=== PATIENT | female | born 1950 | race Hispanic/Latino ===

== ENCOUNTER → 2018-01-30 10:11 | Outpatient (CLI) | payer MEDICARE, SELFPAY ==
--- NOTE | 2018-01-30 | DI.MG.S_ITS ---
BILATERAL DIGITAL SCREENING MAMMOGRAM 3D/2D WITH CAD: 01/30/2018 CLINICAL: Routine screening. Comparison is made to exams dated: 04/21/2015 mammogram, 04/15/2014 mammogram, and 04/17/2013 mammogram - [place]. The tissue of both breasts is heterogeneously dense. This may lower the sensitivity of mammography. Current study was also evaluated with a Computer Aided Detection (CAD) system. No significant masses, calcifications, or other findings are seen in either breast. There has been no significant interval change. IMPRESSION: NEGATIVE There is no mammographic evidence of malignancy. A 1 year screening mammogram is recommended. This exam was interpreted at Station ID: [id number]. NOTE: For mammograms, a report in lay terms will be sent to the patient. Approximately 15% of breast malignancies will not be visualized mammographically. In the management of a palpable breast mass, a negative mammogram must not discourage biopsy of a clinically suspicious lesion. Electronically Signed By: Cornel dahl/jolene:01/30/2018 12:05:42 letter sent: Normal Exam ACR BI-RADS Category 1: Negative 3341F
== END ==
PROVIDERS: Family Provider Internal Medicine; PCP Internal Medicine; Visit Provider Specialist
DX: Z12.31 Encounter for screening mammogram for malignant neoplasm of breast (principal); M85.852 Other specified disorders of bone density and structure, left thigh; Z78.0 Asymptomatic menopausal state; Z82.62 Family history of osteoporosis
CPT/HCPCS: 77063; 77067; 77080

== ENCOUNTER → 2018-04-25 16:42 | Outpatient (CLI) | payer MEDICARE, SELFPAY ==
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
== END ==
PROVIDERS: PCP Student in an Organized Health Care Education/Training Program; Visit Provider Student in an Organized Health Care Education/Training Program
DX: M54.2 Cervicalgia (principal); M43.12 Spondylolisthesis, cervical region
CPT/HCPCS: 72040

== ENCOUNTER → 2018-05-02 18:02 | Outpatient (CLI) | payer MEDICARE, SELFPAY ==
--- NOTE | 2018-05-02 18:05 | DI.RAD.S_ITS ---
PROCEDURE: XR CERVICAL SPINE 4V OR 5V INDICATIONS: CERVICALGIA TECHNIQUE: 7 views of the cervical spine acquired. COMPARISON: None. FINDINGS: Bones: No fractures or dislocations to the C7 level. There is grade 1 anterolisthesis of C3 on C4 and C4 on C5. Moderate degenerative disc disease is present at C5-C6 and C6-C7. There is bilateral facet arthropathy, most pronounced at C3-C4, C4-C5 and C5-C6. On flexion, there is exacerbation of spontaneity ceases. Soft tissues: No prevertebral soft tissue swelling. IMPRESSION: 1. Degenerative disc and facet disease in cervical spine. 2. Grade 1 anterolisthesis of C3 on C4 and C4 on C5, which is exacerbated with flexion. Dictated by: Jc Bui M.D. on 05/03/2018 at 11:28 Approved by: Jc Bui M.D. on 05/03/2018 at 11:34
== END ==
PROVIDERS: Family Provider Internal Medicine; PCP Student in an Organized Health Care Education/Training Program; Visit Provider Student in an Organized Health Care Education/Training Program
DX: M50.322 Other cervical disc degeneration at C5-C6 level (principal); M43.12 Spondylolisthesis, cervical region
CPT/HCPCS: 72050

== ENCOUNTER → 2019-05-01 07:51 | Outpatient (CLI) | payer MEDICARE, SELFPAY ==
--- NOTE | 2019-05-01 | DI.MG.S_ITS ---
BILATERAL DIGITAL SCREENING MAMMOGRAM 3D/2D WITH CAD: 05/01/2019 CLINICAL: Routine screening. Comparison is made to exams dated: 01/30/2018 mammogram - [facility], 04/21/2015 mammogram, 04/15/2014 mammogram, and 04/17/2013 mammogram - [place]. The tissue of both breasts is heterogeneously dense. This may lower the sensitivity of mammography. Current study was also evaluated with a Computer Aided Detection (CAD) system. No significant masses, calcifications, or other findings are seen in either breast. There has been no significant interval change. IMPRESSION: NEGATIVE There is no mammographic evidence of malignancy. A 1 year screening mammogram is recommended. This exam was interpreted at Station ID: [id number]. NOTE: For mammograms, a report in lay terms will be sent to the patient. Approximately 15% of breast malignancies will not be visualized mammographically. In the management of a palpable breast mass, a negative mammogram must not discourage biopsy of a clinically suspicious lesion. Electronically Signed By: Elie barron/jolene:05/01/2019 19:36:52 letter sent: Normal Exam ACR BI-RADS Category 1: Negative 3341F
--- NOTE | 2019-05-01 | DI.RAD.S_ITS ---
PROCEDURE: FL BARIUM SWALLOW INDICATIONS: CHOKING COMPARISON: None. FINDINGS: Function: There is normal esophageal peristalsis. No elicited gastroesophageal reflux. There is normal transit of a calibrated barium tablet through the esophagus into the stomach. Morphology: Air-contrast images demonstrate normal mucosal morphology. Single contrast views show no esophageal strictures, extrinsic mass effects, or diverticula. Limited images of the stomach demonstrate normal appearance. Suggestion of possible very small sliding hiatal hernia real-time imaging but not able to acquire image documentation. IMPRESSION: Possible very small sliding hiatal hernia noted during real-time imaging but unable to acquire image documentation. Otherwise, negative barium swallow. Dictated by: John Rubin M.D. on 05/01/2019 at 18:31 Approved by: John Rubin M.D. on 05/01/2019 at 18:35
== END ==
PROVIDERS: PCP Student in an Organized Health Care Education/Training Program; Visit Provider Student in an Organized Health Care Education/Training Program
DX: Z12.31 Encounter for screening mammogram for malignant neoplasm of breast (principal); R09.89 Other specified symptoms and signs involving the circulatory and respiratory systems
CPT/HCPCS: 74220; 77063; 77067

== ENCOUNTER 2019-05-15 11:00 | Day surgery (SDC) | payer MEDICARE, SELFPAY ==
[2019-05-15] VITALS (7 sets, daily range): BP systolic 96–111; BP diastolic 61–70; PULSE 52–62; RESP 10–16; TEMP 36.2–36.9; O2SAT 97–100; BMI 22.4
[2019-05-15] MEDS: SODIUM CHLORIDE 0.9% 1,000 ML 42 ML IV (11:19)
--- NOTE | 2019-05-15 12:59 | PM.HP.1 ---
History of Present Illness History of Present Illness Date Patient Seen: 05/15/19 Time Patient Seen: 12:59 Chief complaint: [id number] Narrative: Screening colonoscopy. Last in the distant past Patient History Social History household members: spouse Family & Social History Social History: household members spouse Meds Home Medications and Allergies Home Medications Medication Instructions Recorded Confirmed Type estradiol 1 mg PO QDAY #0 11/30/17 05/15/19 History BIEST (50:50) 5mg/mL Cream 2 mg TOPICAL .COMPLEX #30 day 12/21/18 05/15/19 Rx PROGESTERONE 100mg/mL Cream 40 mg TOPICAL .COMPLEX #30 day 12/21/18 05/15/19 Rx azilsartan med-chlorthalidone 1 tab PO DAILY 05/15/19 05/15/19 History [Edarbyclor] Allergies Allergy/AdvReac Type Severity Reaction Status Date / Time Sulfa (Sulfonamide Allergy Intermediate Hives Verified 05/15/19 11:17 Antibiotics) Exam Vital Signs (past 8 hours): - 05/15/19 11:30 Temperature 98.5 F Pulse Rate 57 L Respiratory Rate 16 Blood Pressure 103/65 Pulse Oximetry 99 Oxygen Delivery Method Room Air Narrative Exam Narrative: Oropharynx free of lesions Chest clear to auscultation percussion Cardiac exam reveals no S3 or murmur Assessment & Plan Assessment & Plan narrative: Need for screening colonoscopy. Risks, benefits, alternatives have been explained. Further recommendations to follow the results of that study.
--- NOTE | 2019-05-15 13:00 | PM.OP.ENDO ---
Operative Date/Time/Diagnoses Date of procedure: 05/15/19 Time of procedure: 13:00 Pre-op diagnosis: See indication and findings Procedure Notes Procedure in detail: After informed consent was obtained the patient was placed in left lateral decubitus position. The video colonoscope was introduced the rectum slowly advanced to cecum. On slow withdrawal mucosa was carefully examined. Scope was removed. Patient tolerated procedure well. Preparation was good. Blood loss none Complications none Sedation Total sedation time total sedation time 24 minutes Versed 5 mg fentanyl 100 mg IV titration Findings Scattered diverticulosis particularly in the left colon. One diverticulum in the sigmoid may have had a bit of inflammation around it. Otherwise negative colonoscopy to cecum Patient should have follow-up colonoscopy in 10 years.
[2019-05-15] MEDS: fentaNYL 250 MCG/5 ML INJ IV (13:12)
[2019-05-15] MEDS: MIDAZOLAM 5 MG/5 ML VIAL IV (13:13)
--- NOTE | 2019-05-15 13:17 | SUR.OPER ---
ABDOMINAL EXTERNAL PRESSURE REQUIRED
== END 2019-05-15 14:26 | disposition home or self-care (01) ==
PROVIDERS: PCP Student in an Organized Health Care Education/Training Program; Visit Provider Internal Medicine Gastroenterology
PROC: 0DJD8ZZ Inspection of Lower Intestinal Tract, Via Natural or Artificial Opening Endoscopic (ICD-10-PCS; CPT 45378; principal; 2019-05-15 12:30)
DX: Z12.11 Encounter for screening for malignant neoplasm of colon (principal); K57.30 Diverticulosis of large intestine without perforation or abscess without bleeding
CPT/HCPCS: G0121; J2250; J3010

== ENCOUNTER → 2019-05-17 13:14 | Outpatient (CLI) | payer MEDICARE, SELFPAY ==
--- NOTE | 2019-05-17 | DI.MRI.S_ITS ---
PROCEDURE: MR LUMBAR SPINE WO CON INDICATIONS: Low back pain TECHNIQUE: Noncontrast sagittal T1 spin echo and T2 fast echo, sagittal STIR, axial T1 and T2 fast spin echo through the lumbar spine. In cases with scoliosis, additional coronal T2 fast spin echo may be performed. COMPARISON: [facility] [place], CR, XR LUMBAR SPINE WITH OLBIQUES PLUS FLEXION EXTENSION, 04/24/2019, 15:34. FINDINGS: Image quality: Excellent. Alignment and Curvature: 5 lumbar type vertebral bodies are present by plain film. There is loss of normal lumbar lordosis. Bone Marrow: Marrow is of normal overall signal. No acute vertebral body compression fractures. There is mild reactive signal within the endplates adjacent to the L2-L3 and L3-L4 intervertebral discs. Spinal Cord: Conus medullaris terminates at the upper L2 level. Visualized cord demonstrates normal signal and size. Paraspinous Soft Tissues: No paravertebral masses. L1-L2: Normal appearance. L2-L3: Mild bilateral facet and ligament flavum hypertrophy. Mild disc desiccation and mild diffuse disc bulge. Mild canal stenosis. No foraminal stenosis. L3-L4: Mild disc height loss and desiccation. Mild diffuse disc bulge. Mild facet and ligamentum flavum hypertrophy. Mild epidural lipomatosis. Mild canal stenosis. Mild bilateral foraminal stenosis. L4-L5: Mild facet and ligamentum flavum hypertrophy. No significant canal, nor foraminal stenosis. L5-S1: Mild disc height loss and desiccation. Mild diffuse disc bulge with small superimposed central protrusion. No significant canal, neuroforaminal stenosis. IMPRESSION: Multilevel degenerative disc and facet disease, causing mild multilevel canal and foraminal stenoses. No neural impingement. Dictated by: Vaishali Spangler M.D. on 05/17/2019 at 15:56 Approved by: Vaishali Spangler M.D. on 05/17/2019 at 15:58
== END ==
PROVIDERS: Family Provider Student in an Organized Health Care Education/Training Program; PCP Student in an Organized Health Care Education/Training Program; Visit Provider Physical Medicine & Rehabilitation Pain Medicine
DX: M54.5 Low back pain (principal); M51.36 Other intervertebral disc degeneration, lumbar region; M51.37 Other intervertebral disc degeneration, lumbosacral region; M48.061 Spinal stenosis, lumbar region without neurogenic claudication
CPT/HCPCS: 72148

== ENCOUNTER → 2020-05-13 10:42 | Outpatient (CLI) | payer MEDICARE, SELFPAY ==
--- NOTE | 2020-05-13 | DI.MG.S_ITS ---
BILATERAL DIGITAL SCREENING MAMMOGRAM 3D/2D WITH CAD: 05/13/2020 CLINICAL: Routine screening. Comparison is made to exams dated: 05/01/2019 mammogram, 01/30/2018 mammogram - [facility], and 04/21/2015 mammogram - [place]. The tissue of both breasts is heterogeneously dense. This may lower the sensitivity of mammography. Current study was also evaluated with a Computer Aided Detection (CAD) system. No significant masses, calcifications, or other findings are seen in either breast. There has been no significant interval change. IMPRESSION: NEGATIVE There is no mammographic evidence of malignancy. A 1 year screening mammogram is recommended. This exam was interpreted at Station ID: [id number]. NOTE: For mammograms, a report in lay terms will be sent to the patient. Approximately 15% of breast malignancies will not be visualized mammographically. In the management of a palpable breast mass, a negative mammogram must not discourage biopsy of a clinically suspicious lesion. Electronically Signed By: John klein/jolene:05/13/2020 12:57:53 letter sent: Normal Exam ACR BI-RADS Category 1: Negative 3341F
== END ==
PROVIDERS: Family Provider Student in an Organized Health Care Education/Training Program; PCP Student in an Organized Health Care Education/Training Program; Referring Provider Student in an Organized Health Care Education/Training Program; Visit Provider Student in an Organized Health Care Education/Training Program
DX: Z12.31 Encounter for screening mammogram for malignant neoplasm of breast (principal)
CPT/HCPCS: 77063; 77067

== ENCOUNTER → 2021-06-10 16:01 | Outpatient (CLI) | payer MEDICARE, SELFPAY ==
--- NOTE | 2021-06-10 16:42 | DI.MG.S_ITS ---
BILATERAL DIGITAL SCREENING MAMMOGRAM 3D/2D WITH CAD: 06/10/2021 CLINICAL: Routine screening. Comparison is made to exams dated: 05/13/2020 mammogram, 05/01/2019 mammogram, 01/30/2018 mammogram - [facility], 04/21/2015 mammogram, and 04/15/2014 mammogram - [place]. The tissue of both breasts is heterogeneously dense. This may lower the sensitivity of mammography. Current study was also evaluated with a Computer Aided Detection (CAD) system. There is a 0.8 cm asymmetry with an indistinct margin in the right breast anterior depth inferior region seen on the mediolateral oblique view only. Finding is seen only on tomography. This is more prominent. No other significant masses, calcifications, or other findings are seen in either breast. IMPRESSION: INCOMPLETE: NEEDS ADDITIONAL IMAGING EVALUATION The 0.8 cm asymmetry in the right breast is indeterminate. Additional views with possible ultrasound are recommended. This exam was interpreted at Station ID: [id number]. NOTE: For mammograms, a report in lay terms will be sent to the patient. Approximately 15% of breast malignancies will not be visualized mammographically. In the management of a palpable breast mass, a negative mammogram must not discourage biopsy of a clinically suspicious lesion. Electronically Signed By: Elie Sadler M.D. slc/:06/10/2021 17:06:11 letter sent: Additional Imaging Needed ACR BI-RADS Category 0: Incomplete 3340F
== END ==
PROVIDERS: Family Provider Student in an Organized Health Care Education/Training Program; PCP Student in an Organized Health Care Education/Training Program; Referring Provider Student in an Organized Health Care Education/Training Program; Visit Provider Student in an Organized Health Care Education/Training Program
DX: Z12.31 Encounter for screening mammogram for malignant neoplasm of breast (principal)
CPT/HCPCS: 77063; 77067

== ENCOUNTER → 2021-12-15 13:16 | Outpatient (CLI) | payer MEDICARE, SELFPAY ==
[2021-12-15 13:54] LABS: Add Manual Diff / Slide Review NO; Basophils Absolute Auto 0 /uL (0-100); Basophils Percent Auto 0.7 % (0-2); Eosinophils Absolute Auto 100 /uL (0-450); Hematocrit 38.3 % (36-46); Lymphocytes Absolute Auto 1500 /uL (1100-4500); Lymphocytes Percent Auto 39.1 % (25-40); Mean Corpuscular HGB Conc 33.9 % (30-36); Mean Corpuscular Hemoglobin 31.1 PG (26-34); Mean Corpuscular Volume 91.6 fL (80-100); Monocytes Absolute Auto 500 /uL (0-900); Monocytes Percent Auto 13.2 % (3-14); Neutrophils Absolute Auto 1800 /uL (1500-7000); Platelet Count 313 X10^3/uL (150-400); Red Blood Cell Count 4.18 X10^6/uL (4.0-5.2); Red Cell Distribution Width 12.3 % (11.6-14.8); White Blood Cell Count 3.9 X10^3/uL (4.5-11.0)
[2021-12-15 14:22] LABS: Alanine Aminotransferase 22 IU/L (<35); Albumin 4.7 g/dL (3.5-5.0); Albumin Globulin Ratio 1.5 (1.0-2.8); Alkaline Phosphatase 61 U/L (38-126); Aspartate Aminotransferase 30 IU/L (14-36); BUN Creatinine Ratio 22.7 (6-22); Bilirubin Total 0.3 mg/dL (0.2-1.3); Blood Urea Nitrogen 17 mg/dL (7-17); Calcium 9.8 mg/dL (8.4-10.2); Carbon Dioxide 29 mmol/L (22-32); Chloride 104 mmol/L (98-107); Estimated Glomerular Filt Rate > 60 mL/min (>60); Globulin 3.1 g/dL (1.7-4.1); Glucose 95 mg/dL (80-110); HEMOLYSIS < 15 (0-50); Potassium 4.1 mmol/L (3.4-5.1); Sodium 140 mmol/L (137-145); Total Protein 7.8 g/dL (6.3-8.2)
== END ==
PROVIDERS: Family Provider Student in an Organized Health Care Education/Training Program; PCP Student in an Organized Health Care Education/Training Program; Referring Provider Physician Assistant; Visit Provider Physician Assistant
DX: R14.0 Abdominal distension (gaseous) (principal); K21.9 Gastro-esophageal reflux disease without esophagitis; M79.7 Fibromyalgia; R07.89 Other chest pain; R14.2 Eructation; K63.89 Other specified diseases of intestine
CPT/HCPCS: 36415; 80053; 85025

== ENCOUNTER → 2022-03-21 15:27 | Outpatient (CLI) | payer MEDICARE, SELFPAY ==
--- NOTE | 2022-03-21 15:29 | DI.RAD.S_ITS ---
PROCEDURE: XR CHEST 2V INDICATIONS: Edema lower extremity TECHNIQUE: 2 views of the chest were acquired. COMPARISON: None. FINDINGS: Surgical changes and devices: None. Lungs and pleura: Lungs are clear. No pleural effusions or pneumothorax. Mediastinum: Mediastinal contours are normal. Heart size is normal. Bones and chest wall: No suspicious bony abnormalities. Soft tissues appear unremarkable. IMPRESSION: No acute cardiopulmonary disease. Dictated by: Jayme Chavez [facility] Interpreted: Vaishali Spangler MD on 03/21/2022 at 16:55 Transcribed by: ARUNA on 03/21/2022 at 16:56 Approved by: Vaishali Spangler M.D. on 03/21/2022 at 16:57
[2022-03-21 18:12] LABS: NT-proBNP (BNP-Adult 18+) 105 pg/mL (<125)
[2022-03-21 18:13] LABS: TSH w/ Reflex to FT4 1.41 uIU/mL (0.47-4.68)
== END ==
PROVIDERS: Family Provider Student in an Organized Health Care Education/Training Program; PCP Student in an Organized Health Care Education/Training Program; Referring Provider Nurse Practitioner Family; Visit Provider Nurse Practitioner Family
DX: R60.0 Localized edema
CPT/HCPCS: 36415; 71046; 83880; 84443

== ENCOUNTER → 2022-06-20 09:51 | Outpatient (CLI) | payer MEDICARE, SELFPAY ==
--- NOTE | 2022-06-20 | DI.US.S_ITS ---
LIMITED ULTRASOUND OF RIGHT BREAST: 06/20/2022 CLINICAL: Patient returns today to evaluate two focal asymmetries in the right breast. Comparison is made to exams dated: 06/20/2022 mammogram - [facility], 07/16/2021 mammogram - outside location, 06/10/2021 mammogram, 05/13/2020 mammogram, 05/01/2019 mammogram, and 01/30/2018 mammogram - [facility]. Color flow, real-time, and Doppler ultrasound of the right breast 2-3 o'clock region were performed. Hood scale images of the real-time examination were reviewed. Both of the previously described hypoechoic foci at 2:00 and 3:00 measuring 3-4 mm are unchanged. These remain consistent with benign complicated cysts. IMPRESSION: BENIGN There is no sonographic evidence of malignancy. Return to annual mammogram screening schedule is recommended. This exam was interpreted at Station ID: [id number]. Electronically Signed By: Kamron Vickers M.D. jr/:06/20/2022 14:33:48 letter sent: Normal Exam Ultrasound BI-RADS: 2 Benign
--- NOTE | 2022-06-20 | DI.MG.S_ITS ---
BILATERAL DIGITAL DIAGNOSTIC MAMMOGRAM 3D/2D SHORT-TERM FOLLOW-UP: 06/20/2022 CLINICAL: Short term follow of the Right breast;Due bilateral. Comparison is made to exams dated: 06/10/2021 mammogram, 05/13/2020 mammogram, 05/01/2019 mammogram - [facility], and 07/16/2021 mammogram - outside location. Both breasts are heterogeneously dense, which may obscure small masses (category c / 51-75% glandular tissue). The 0.8 cm asymmetry with an indistinct margin in the right breast anterior depth inferior region seen on the mediolateral oblique view only is not significantly changed. No other significant masses, calcifications, or other findings are seen in either breast. IMPRESSION: INCOMPLETE: NEEDS ADDITIONAL IMAGING EVALUATION The 0.8 cm asymmetry in the right breast is stable. An ultrasound is recommended. Based on the Tyrer Cuzick model (a risk assessment model) the patient's lifetime risk is 7.9% and her 10 year risk is 5.0%. According to the ACR, ACS, and NCCN guidelines, an annual breast MRI exam along with mammogram is recommended if the patient's lifetime risk is 20% or greater. This exam was interpreted at Station ID: [id number]. NOTE: For mammograms, a report in lay terms will be sent to the patient. Approximately 15% of breast malignancies will not be visualized mammographically. In the management of a palpable breast mass, a negative mammogram must not discourage biopsy of a clinically suspicious lesion. Electronically Signed By: Kamron Vickers M.D. jr/:06/20/2022 14:31:24 ACR BI-RADS Category 0: Incomplete 3340F
== END ==
PROVIDERS: Family Provider Student in an Organized Health Care Education/Training Program; PCP Student in an Organized Health Care Education/Training Program; Referring Provider Student in an Organized Health Care Education/Training Program; Visit Provider Student in an Organized Health Care Education/Training Program
DX: R92.8 Other abnormal and inconclusive findings on diagnostic imaging of breast (principal); N64.89 Other specified disorders of breast
CPT/HCPCS: 76642; 77066; G0279

== ENCOUNTER → 2022-11-24 10:11 | Outpatient (CLI) | payer MEDICARE, SELFPAY ==
--- NOTE | 2022-11-24 | DI.US.S_ITS ---
ULTRASOUND OF LEFT BREAST: 11/24/2022 CLINICAL: Left Breast bloody nipple discharge. Comparison is made to exams dated: 11/24/2022 mammogram, 06/20/2022 ultrasound, and 06/20/2022 mammogram - [facility]. Color flow and continuous wave Doppler ultrasound of the left breast were performed. No abnormality is identified with ultrasound. No dilated ducts. No mass. IMPRESSION: INCOMPLETE: NEEDS ADDITIONAL IMAGING EVALUATION There is no abnormality seen in the left breast to correspond with the bloody discharge from the nipple, however, breast MRI is recommended. This exam was interpreted at Station ID: [id number]. Electronically Signed By: Zheng Bae M.D. acr/:11/24/2022 11:09:14 letter sent: Need MRI Ultrasound BI-RADS: 0 Indeterminate
--- NOTE | 2022-11-24 | DI.MG.S_ITS ---
UNILATERAL LEFT DIGITAL DIAGNOSTIC MAMMOGRAM 3D/2D: 11/24/2022 CLINICAL: Left bloody nipple discharge. Comparison is made to exams dated: 06/20/2022 mammogram - [facility], 07/16/2021 mammogram - outside [facility], and 06/10/2021 mammogram - [facility]. The left breast is heterogeneously dense, which may obscure small masses (category c / 51-75% glandular tissue). No significant masses, calcifications, or other findings are seen in the breast. IMPRESSION: INCOMPLETE: NEEDS ADDITIONAL IMAGING EVALUATION There is no abnormality seen in the left breast to correspond with the discharge from the nipple, however, ultrasound is recommended. US will be performed and dictated separately. Based on the Tyrer Cuzick model (a risk assessment model) the patient's lifetime risk is 7.9% and her 10 year risk is 5.0%. According to the ACR, ACS, and NCCN guidelines, an annual breast MRI exam along with mammogram is recommended if the patient's lifetime risk is 20% or greater. This exam was interpreted at Station ID: [id number]. NOTE: For mammograms, a report in lay terms will be sent to the patient. Approximately 15% of breast malignancies will not be visualized mammographically. In the management of a palpable breast mass, a negative mammogram must not discourage biopsy of a clinically suspicious lesion. Electronically Signed By: Zheng Bae M.D. acr/:11/24/2022 10:56:15 ACR BI-RADS Category 0: Incomplete 3340F
== END ==
PROVIDERS: Family Provider Student in an Organized Health Care Education/Training Program; PCP Student in an Organized Health Care Education/Training Program; Referring Provider Student in an Organized Health Care Education/Training Program; Visit Provider Student in an Organized Health Care Education/Training Program
DX: N64.4 Mastodynia (principal); N64.52 Nipple discharge; R92.2 Inconclusive mammogram
CPT/HCPCS: 76642; 77065; G0279

== ENCOUNTER → 2023-01-30 12:57 | Outpatient (CLI) | payer MEDICARE, SELFPAY ==
--- NOTE | 2023-01-30 13:39 | DI.MRI.S_ITS ---
BREAST MRI OF BOTH BREASTS: 01/30/2023 CLINICAL: Nipple discharge. Comparison is made to exams dated: 11/24/2022 ultrasound, 11/24/2022 mammogram, 06/20/2022 mammogram, 06/20/2022 ultrasound - [facility], and 07/16/2021 mammogram - outside location. PROCEDURE: MR BREAST BI WO/W CON INDICATIONS: Nipple discharge TECHNIQUE: The patient was placed prone in a dedicated breast imaging coil. Precontrast axial STIR and 3D FLASH without fat saturation sequences were obtained. Both before and after bolus injection of contrast, sequential 1-minute axial 3D FLASH with fat saturation sequences for 3 time points, with subtraction images and maximum intensity projections (MIP's) generated. Delayed sagittal FLASH images with fat saturation were also obtained. Computer-aided detection, including computer algorithm analysis of MRI image data for lesion detection and characterization, pharmacokinetic analysis, with further physician review for interpretation, was performed. FINDINGS: Image quality: Good however, there is marked background enhancement bilaterally. Right breast: No suspicious mass, non-mass enhancement or focus. Left breast: In the retroareolar region of the left breast, at 6:00 1-2 cm from the nipple, there is a possible 5 x 8 mm oval circumscribed mass (18/70, ) though this could actually represent just a prominent area of background enhancement. No other suspicious mass, non-mass enhancement, or focus. On kinetic analysis in both breasts, no suspicious non-mass enhancement, mass, or focus identified with washout characteristics. Miscellaneous: No suspicious axillary or internal mammary adenopathy identified. Small cysts are seen in both breasts. There are possible small suspected dilated ducts behind the left nipple (/, 29). IMPRESSION: INCOMPLETE: NEEDS ADDITIONAL IMAGING EVALUATION Marked background enhancement in both breasts, limiting evaluation. In the left breast, reported suspicious discharge is noted without definite suspicious mass or non mass enhancement. On T2 weighted images, a few prominent ducts are present behind the nipple (/28, 29). There is a possible oval circumscribed mass at the 6 o'clock position 1-2 cm from the nipple versus prominent background enhancement (18/70, 5/68). This area was probably included in the field of view on prior diagnostic ultrasound from 11/24/2022, for which no sonographic abnormality was seen. However, given clinical history of suspicious bloody nipple discharge, a second-look ultrasound focused on this area could be obtained. Continue clinical follow-up and evaluation are also recommended with reimaging if symptoms persist/worsen. No suspicious findings in the right breast. BIRADS 0 This exam was interpreted at Station ID: [id number]. Electronically Signed By: William Ray M.D. lc/:01/30/2023 14:59:17 letter sent: Additional Imaging Needed ACR BI-RADS Category 0: Incomplete 3340F
== END ==
PROVIDERS: Family Provider Student in an Organized Health Care Education/Training Program; PCP Student in an Organized Health Care Education/Training Program; Referring Provider Student in an Organized Health Care Education/Training Program; Visit Provider Student in an Organized Health Care Education/Training Program
DX: N64.52 Nipple discharge (principal); N60.01 Solitary cyst of right breast; N60.02 Solitary cyst of left breast; R92.8 Other abnormal and inconclusive findings on diagnostic imaging of breast
CPT/HCPCS: 77049; A9579

== ENCOUNTER → 2023-02-10 12:54 | Outpatient (CLI) | payer MEDICARE, SELFPAY ==
--- NOTE | 2023-02-10 | DI.US.S_ITS ---
ULTRASOUND OF LEFT BREAST: 02/10/2023 CLINICAL: Patient returns today to evaluate a focal asymmetry in the left breast. Comparison is made to exams dated: 01/30/2023 breast MRI, 11/24/2022 ultrasound, 11/24/2022 mammogram, 06/20/2022 mammogram - [facility], 07/16/2021 mammogram - outside location, and 06/10/2021 mammogram - [facility]. Color flow and real-time ultrasound of the left breast were performed. Hood scale images of the real-time examination were reviewed. There is a 0.7 cm x 0.3 cm x 0.4 cm wider than tall oval cyst in the left breast at 6 o'clock in the retroareolar region 1 cm from the nipple. This oval cyst is hypoechoic with internal echoes. This likely correlates with breast MRI findings which demonstrated a rim-enhancing 8mm mass in a similar area. Retrospective review suggests a thick rim enhancement and T2 hyperintensity on T2 sequence. Color flow imaging demonstrates that there is no vascularity present. Incidental 0.3 x 0.2 x 0.3 cm complicated cyst at the 2 o'clock 2 cm from nipple. IMPRESSION: PROBABLY BENIGN The 0.7 cm x 0.3 cm x 0.4 cm wider than tall oval cyst in the left breast may represent a complicated cyst given suggestion of rim enhancement on comparison MRI. This is probably benign. Additional incidental cyst noted at 2 o'clock 2cm from the nipple which is also probably benign. A follow-up left ultrasound in 6 months is recommended to demonstrate stability. Findings and recommendations were conveyed to the patient during today's evaluation. This exam was interpreted at Station ID: [id number]. Electronically Signed By: John Rubin M.D. aty/:02/10/2023 13:46:59 letter sent: Followup Recommended Ultrasound BI-RADS: 3 Probably benign
== END ==
PROVIDERS: Family Provider Student in an Organized Health Care Education/Training Program; PCP Student in an Organized Health Care Education/Training Program; Referring Provider Student in an Organized Health Care Education/Training Program; Visit Provider Student in an Organized Health Care Education/Training Program
DX: R92.8 Other abnormal and inconclusive findings on diagnostic imaging of breast (principal); N60.02 Solitary cyst of left breast
CPT/HCPCS: 76642

== ENCOUNTER → 2023-05-25 14:23 | Outpatient (CLI) | payer MEDICARE, SELFPAY | PROVIDERS: Family Provider Student in an Organized Health Care Education/Training Program; PCP Student in an Organized Health Care Education/Training Program; Referring Provider Family Medicine; Visit Provider Family Medicine | DX: Z23 Encounter for immunization (principal) | CPT/HCPCS: 90471; 90662 ==